=== PATIENT | female | born 1950 | race African-American/Black ===

== ENCOUNTER 2021-04-06 14:14 | Emergency (ER) | payer MEDICARE, OTHER ==
[~2021-04-06] VITALS: Ht 165.1 cm; Wt 101.0 kg
[2021-04-06 15:50] VITALS: BP 126/99
[2021-04-06 16:52] LABS: CLARITY URINE CLEAR (CLEAR); COLOR URINE YELLOW (YELLOW); KETONES URINE NEGATIVE (NEGATIVE); LEUKOCYTE ESTERASE URINE 2+ (NEGATIVE); NITRITE URINE POSITIVE (NEGATIVE); OCCULT BLOOD URINE 1+ (NEGATIVE); PH URINE 5.5 (4.5-8.0); PROTEIN URINE NEGATIVE (NEGATIVE); SPECIFIC GRAVITY URINE 1.016 (1.005-1.030); UROBILINOGEN URINE 0.2 E.U./dL (0.2-1.0)
[2021-04-06] MEDS ORDERED: NITR100C MT (17:08)
[2021-04-06] MEDS ORDERED: PHEN-815 MT (17:08)
== END 2021-04-06 17:37 | disposition home or self-care (01) ==
LOC: ER 14:14
DX: N39.0 Urinary tract infection, site not specified (principal)
CPT/HCPCS: 81003; 87077; 87186; 99283

== ENCOUNTER 2022-07-20 09:06 | Emergency (ER) | payer MEDICARE, MEDICAID ==
[~2022-07-20] VITALS: Ht 149.9 cm; Wt 82.0 kg
[~2022-07-20 09:06] MED LIST: NITR100C MT; PHEN-815 MT
[2022-07-20] MEDS ORDERED: BENZ100C86 PO (10:12)
[2022-07-20 10:20] VITALS: BP 127/75
== END 2022-07-20 10:21 | disposition home or self-care (01) ==
LOC: ER 09:18
DX: R05.3 Chronic cough (principal); I10 Essential (primary) hypertension; Z86.39 Personal history of other endocrine, nutritional and metabolic disease
CPT/HCPCS: 71045; 99283

== ENCOUNTER 2025-03-17 16:56 | Emergency (ER) | payer MEDICARE, MEDICAID ==
[~2025-03-17] VITALS: Ht 167.6 cm; Wt 80.0 kg
[~2025-03-17 16:56] MED LIST changes: +FURO40TA5 MT; -NITR100C MT; -PHEN-815 MT; +SULF1TAB48 MT
[2025-03-17 17:03] VITALS: TEMP 97; O2SAT 97
[2025-03-17] MEDS: ONDANSETRON HCL 4MG/2ML INJ IV ONE (18:01)
[2025-03-17] MEDS: SODIUM CHLORIDE 0.9% 1,000 ML IV ONE (18:01)
[2025-03-17 18:06] LABS: BASOPHILS % 0.8 % (0.0-2.0); EOSINOPHILS % 1.5 % (0.0-5.0); HEMATOCRIT. 39.3 % (36.0-48.0); HEMOGLOBIN. 12.9 g/dL (12.0-16.0); LYMPHOCYTES % 22.5 % (20.0-50.0); MEAN PLATELET VOLUME 8.4 fl (7.4-10.4); MONOCYTES % 3.1 % (2.0-8.0); NEUTROPHILS % 72.1 % (40.0-76.0); PLATELET 203 x1000/uL (130-400); RED BLOOD CELL COUNT 4.25 mill/uL (4.2-5.4); RED CELL DISTRIBUTION WIDTH 15.6 % (11.6-14.6)
[2025-03-17 18:21] LABS: CREATININE 0.8 mg/dL (0.6-1.0)
[2025-03-17 18:22] LABS: PROTEIN TOTAL 6.4 g/dL (6.0-8.3); TROPONIN I HIGH SENSITIVITY 15 ng/L (3.0-34); UREA NITROGEN BLOOD 13 mg/dL (9-23)
[2025-03-17 18:23] LABS: ASPARTATE AMINOTRANSFERASE 30 IU/L (<34)
[2025-03-17 18:24] LABS: BILIRUBIN DIRECT 0.2 mg/dL (<=3.0); BILIRUBIN TOTAL 0.9 mg/dL (0.1-1.0)
[2025-03-17] MEDS ORDERED: ONDA4TAB50 MT (18:58)
[2025-03-17 20:14] VITALS: BP 108/83; PULSE 92; RESP 14; O2SAT 98
== END 2025-03-17 20:40 | disposition home or self-care (01) ==
LOC: ER 16:56
DX: R11.2 Nausea with vomiting, unspecified (principal); I50.9 Heart failure, unspecified; E78.00 Pure hypercholesterolemia, unspecified; E03.8 Other specified hypothyroidism; I11.0 Hypertensive heart disease with heart failure; M10.9 Gout, unspecified; Z79.899 Other long term (current) drug therapy
CPT/HCPCS: 99285; 96374; 71045; 96361; 80076; 80048; 85025; 84484; 36415; 93005; J2405; J7030; A4606